=== PATIENT | female | born 1965 | race Caucasian/White ===

== ENCOUNTER 2016-03-07 07:19 | Day surgery (SDC) | payer BC ==
[~2016-03-07] VITALS: Ht 162.6 cm; Wt 65.8 kg
[~2016-03-07 07:19] MED LIST: LEVO-T100 MCG PO; PERCOCET 5/31 TABLET PO; ZOFRAN ODT4 MG PO
[2016-03-07 07:49] VITALS: BP 100/60
[2016-03-07 08:11] LABS: BASOPHIL COUNT 0.1 K/uL (0-0.1); EOSINOPHIL (%) 1.4 % (0-5); EOSINOPHIL COUNT 0.1 K/uL (0-0.3); HEMATOCRIT 39.7 % (36.0-46.0); IMMATURE GRANULOCYTE (%) 0.3 % (0.0-0.7); LYMPHOCYTE COUNT 1.4 K/uL (1.0-2.8); MCH 30.6 PG (29.0-34.0); MCHC 33.5 G/DL (30.0-36.0); MCV 91.3 FL (83-99); MEAN PLAT.VOLUME 10.8 uM^3 (9.5-12.4); MONOCYTE COUNT 0.3 K/uL (0-0.8); NEUTROPHIL (%) 50.4 % (45-76); NEUTROPHIL COUNT 1.8 K/uL (1.8-6.4); PLATELET COUNT 228 K/uL (156-360); RBC DIS.WIDTH-CV 12.4 % (11.8-14.6); RBC DIS.WIDTH-SD 41.5 % (39-53); RED BLOOD COUNT 4.35 M/uL (3.80-5.20); WHITE BLOOD COUNT 3.6 K/uL (4.1-10.2)
[2016-03-07 08:31] LABS: INTER. NORMALIZED RATIO 1.1; PROTHROMBIN TIME 11.1 (9.2-11.2)
[2016-03-07 08:44] LABS: ANION GAP 8 MEQ/L (2-14); CHLORIDE 110 MEQ/L (99-109); POTASSIUM 4.2 MEQ/L (3.7-5.4); SAMPLE HEMOLYSIS CHECK 0; SAMPLE ICTERIC CHECK 0; SAMPLE LIPEMIA CHECK 0; SODIUM 143 MEQ/L (136-147); TOTAL BILIRUBIN 0.5 MG/DL (0.0-1.0)
[2016-03-07 08:50] LABS: ALKALINE PHOSPHATASE 76 IU/L (3-129); GFR ESTIMATE (CALCULATED) > 59 mL/min/; GLUCOSE 89 mg/dL (70-99); UREA NITROGEN (BUN) 16 mg/dL (9-23)
[2016-03-07 08:53] LABS: QUANTITATIVE HCG 9.2 MIU/ML
[2016-03-07 12:30] VITALS: BP 100/60
[2016-03-07 13:40] VITALS: BP 98/54
== END 2016-03-07 14:30 | disposition home or self-care (01) ==
LOC: SDC 07:19
PROVIDERS: Thoracic Surgery (Cardiothoracic Vascular Surgery)
PROC: 0FT44ZZ Resection of Gallbladder, Percutaneous Endoscopic Approach (ICD-10-PCS; principal; 2016-03-07)
DX: K80.10 Calculus of gallbladder with chronic cholecystitis without obstruction (principal); Z87.09 Personal history of other diseases of the respiratory system; E03.9 Hypothyroidism, unspecified; Z82.49 Family history of ischemic heart disease and other diseases of the circulatory system; Z83.3 Family history of diabetes mellitus
CPT/HCPCS: 80053; 84702; 85025; 85610; 88304; J0330; J0690; J1100; J1170; J1885; J2250; J2405; J2710; J3010